=== PATIENT | male | born 1965 | race Caucasian/White ===

== ENCOUNTER 2016-08-29 14:10 | Emergency (ER) | payer MEDICAID ==
[~2016-08-29] VITALS: Wt 78.0 kg
[2016-08-29] MEDS ORDERED: ONDANSETRON 4 MG INJ IV STA (15:06)
[2016-08-29] MEDS ORDERED: SOD CHLORIDE 0.9% 1,000 ML IV ONE (15:30)
[2016-08-29] MEDS ORDERED: MECLIZINE 12.5 MG TAB PO ONE (15:30)
[2016-08-29 15:47] LABS: ADD UMIC NO; URINE BILIRUBIN (Dip) NEGATIVE (NEGATIVE); URINE BLOOD (Dip) NEGATIVE (NEGATIVE); URINE COLOR YELLOW (YELLOW); URINE GLUCOSE (Dip) NEGATIVE (NEGATIVE); URINE KETONES (Dip) 15 (NEGATIVE); URINE LEUKOCYTE ESTERASE (Dip) NEGATIVE (NEGATIVE); URINE NITRITE (Dip) NEGATIVE (NEGATIVE); URINE TOTAL PROTEIN (Dip) NEGATIVE (NEGATIVE); URINE UROBILINOGEN (Dip) 1.0 E.U./dL (0.1-1.0)
[2016-08-29 16:02] LABS: ADD SCAN DIFF NO
[2016-08-29 16:04] LABS: BASOPHILS % 0.3 % (0.0-2.0); EOSINOPHILS # 0.1 10^3/ul (0.0-0.5); EOSINOPHILS % 0.6 % (0.0-7.0); HEMATOCRIT 45.7 % (42.0-52.0); HEMOGLOBIN 15.1 g/dl (14.0-18.0); LYMPHOCYTES # 1.7 10^3/ul (0.8-2.9); LYMPHOCYTES % 18.2 % (15.0-51.0); MEAN CORPUSCULAR HEMOGLOBIN 29.6 pg (29.0-33.0); MEAN CORPUSCULAR VOLUME 89.6 fl (82.0-101.0); MEAN PLATELET VOLUME 11.4 fl (7.4-10.4); MONOCYTE # 0.5 10^3/ul (0.3-0.9); MONOCYTES % 5.5 % (0.0-11.0); NEUTROPHIL # 6.8 10^3/ul (1.6-7.5); NEUTROPHILS % 75.2 % (39.0-77.0); PLATELET COUNT 195 10^3/UL (140-415); RED CELL DISTRIBUTION WIDTH 12.4 % (11.5-14.5); WHITE BLOOD COUNT 9.1 10^3/ul (4.8-10.8)
[2016-08-29 16:23] LABS: ALANINE AMINOTRANSFERASE 41 IU/L (13-69); ALBUMIN 4.6 g/dl (3.3-4.9); ALBUMIN/GLOBULIN RATIO 1.31; ALKALINE PHOSPHATASE 72 IU/L (42-121); ANION GAP 11 (8-16); ASPARTATE AMINO TRANSFERASE 23 IU/L (15-46); BILIRUBIN,INDIRECT 0.8 mg/dl (0-1.1); BILIRUBIN,TOTAL 0.8 mg/dl (0.2-1.3); BLOOD UREA NITROGEN 19 mg/dl (7-20); CALCIUM 9.6 mg/dl (8.4-10.2); CARBON DIOXIDE 29 mmol/L (21-31); CHLORIDE 103 mmol/L (97-110); CREATININE 0.93 mg/dl (0.61-1.24); GLUCOSE 96 mg/dl (70-220); POTASSIUM 3.8 mmol/L (3.5-5.1); SODIUM 139 mmol/L (135-144); TOTAL PROTEIN 8.1 g/dl (6.1-8.1)
[2016-08-29 16:36] LABS: TROPONIN-I < 0.012 ng/ml (0.00-0.12)
--- NOTE | 2016-08-29 17:02 | RADRPT ---
PROCEDURE: CT Brain without contrast. CLINICAL INDICATION: headache, dizziness TECHNIQUE: CT scan of the brain was performed on a multidetector high-resolution CT scan. Axial im aging was obtained of the brain without contrast administration. Coronal and sagittal reformatted i mages were obtained from the axial source images. Standard CT scan of the head without contrast prot ocols were performed. The total exam CTDI equals 43.58 mGy and the total exam DLP equals 720.23 mGy-cm. One or more of the following dose reduction techniques were used: - Automated exposure control. - Adjustment of the mA and/or kV according to patient size. Use of iterative reconstruction technique. COMPARISON: None. FINDINGS: The ventricular system is normal in size without midline shift. There is some ventricle prominence of the bifrontal extra-axial CSF spaces consistent with mild frontal frontal cerebral volume loss. Negative for intracranial masses hemorrhages or midline shift. Ugalde-white matter junction is unrema rkable. The bones and calvarium are intact. The paranasal sinuses visualized and mastoids are unre markable. IMPRESSION: No evidence of intracranial masses hemorrhages or midline shift. RPTAT:AAJJ Physician Katty Date Time Electronically viewed and signed by Physician Katty on 08/29/2016 17:02 /
[2016-08-29] MEDS ORDERED: MECL12.574 PO (17:50)
[2016-08-29 18:10] VITALS: BP 119/75; PULSE 57; RESP 16; TEMP 98.2
--- NOTE | 2016-08-29 18:13 | ERD ---
ER Documentation Chief Complaint Date/Time DATE: 08/29/16 TIME: 18:06 Chief Complaint VOMITING, DIZZINESS, ONSET 2 DAYS HPI Patient is a 51-year-old male who presents to the emergency department with dizziness and vomiting 2 days. Patient states that his dizziness is constant, however worse with movement including when getting up from bed as well as moving his head. Patient states that "he cannot control his eyes" and states that he feels like the room is spinning. Patient does report one episode of bloody nonbilious vomiting today. Patient denies any fevers, chills, neck pain , neck stiffness, chest pain, shortness of breath, diplopia, dysphasia. Patient does report a headache. Patient states that the pain is localized to the occipital region. Patient states that the pain comes and goes. Patient denies any blurry vision, photophobia, phonophobia. Patient has not taken any medications for symptoms. Patient is able to ambulate without any difficulty. Patient is speaking in full sentences. Patient has no facial asymmetry, weakness of his limbs slurred speech. ROS All systems reviewed and are negative except as per history of present illness. Medications Home Meds Active Scripts Meclizine Hcl* (Antivert*) 12.5 Mg Tab, 12.5 MG PO Q6H Y for DIZZINESS, #20 TAB Prov:ALBERT CHEN PA-C 08/29/16 Allergies Allergies: Coded Allergies: No Known Allergy (Unverified , 08/29/16) PMhx/Soc History of Surgery: Yes (PT with L forearm surgery.) Anesthesia Reaction: No Hx Neurological Disorder: No Hx Respiratory Disorders: No Hx Cardiac Disorders: No Hx Psychiatric Problems: No Hx Miscellaneous Medical Probl: No Hx Alcohol Use: No Hx Substance Use: No Hx Tobacco Use: No Smoking Status: Never smoker FmHx Family History: No diabetes Physical Exam Vitals Vital Signs Date Time Temp Pulse Resp B/P Pulse Ox O2 Delivery O2 Flow Rate FiO2 08/29/16 18:10 98.2 57 16 119/75 98 Room Air 08/29/16 14:12 97.0 68 18 114/71 100 Physical Exam GENERAL: Well-developed, well-nourished male. Appears in no acute distress. Speaking in full sentences. HEAD: Normocephalic, atraumatic. No deformities or ecchymosis. EYE: Pupils equal, round, and reactive to light. EOMs intact. No conjunctival erythema. No eye discharge. No nystagmus noted. ENT: External ear without any masses or tenderness. Auditory canals clear bilaterally. TM visualized bilaterally, non-erythematous, non-bulging. Nasal mucosa pink with no discharge. Oropharynx is pink without any tonsillar erythema or exudates. No uvula deviation. No kissing tonsils. Tender palpation of bilateral mastoid processes. No foreign bodies in bilateral auditory canals noted. NECK: Supple. No meningismus. Normal ROM of the neck. LUNG: Clear to auscultation bilaterally. No rhonchi, wheezing, rales or coarse breath sounds. HEART: Regular rate and rhythm. No murmurs, rubs or gallops. BACK: No midline tenderness. EXTREMITES: Equal pulses bilaterally. No peripheral clubbing, cyanosis or edema. No unilateral leg swelling. NEUROLOGIC: Alert and oriented x3, cooperative. Mood and affect appropriate to situation. Cranial nerves II through XII are grossly intact. Normal speech. Motor exam: 5/5 strength in upper and lower extremities. Sensory exam: Sensation intact to light touch on all four extremities. Cerebellar function exam:. No dysmetria on [id number] test. No pronator drift. SKIN: Normal color. Warm and dry. No rashes or lesions. Result Diagram: 08/29/16 1544 08/29/16 1544 Results 24 hrs Laboratory Tests Test 08/29/16 15:34 08/29/16 15:44 Urine Color YELLOW Urine Clarity CLEAR Urine pH 6.5 Urine Specific [place] 1.020 Urine Ketones 15 Urine Nitrite NEGATIVE Urine Bilirubin NEGATIVE Urine Urobilinogen 1.0 E.U./dL Urine Leukocyte Esterase NEGATIVE Urine Hemoglobin NEGATIVE Urine Glucose NEGATIVE% Urine Total Protein NEGATIVE White Blood Count 9.110^3/ul Red Blood Count 5.1010^6/ul Hemoglobin 15.1g/dl Hematocrit 45.7% Mean Corpuscular Volume 89.6fl Mean Corpuscular Hemoglobin 29.6pg Mean Corpuscular Hemoglobin Concent 33.0g/dl Red Cell Distribution Width 12.4% Platelet Count 71680^3/UL Mean Platelet Volume 11.4fl Neutrophils % 75.2% Lymphocytes % 18.2% Monocytes % 5.5% Eosinophils % 0.6% Basophils % 0.3% Nucleated Red Blood Cells % 0.0/100WBC Neutrophils # 6.810^3/ul Lymphocytes # 1.710^3/ul Monocytes # 0.510^3/ul Eosinophils # 0.110^3/ul Basophils # 0.010^3/ul Nucleated Red Blood Cells # 0.010^3/ul Sodium Level 139mmol/L Potassium Level 3.8mmol/L Chloride Level 103mmol/L Carbon Dioxide Level 29mmol/L Anion Gap 11 Blood Urea Nitrogen 19mg/dl Creatinine 0.93mg/dl Glucose Level 96mg/dl Calcium Level 9.6mg/dl Total Bilirubin 0.8mg/dl Direct Bilirubin 0.00mg/dl Indirect Bilirubin 0.8mg/dl Aspartate Amino Transf (AST/SGOT) 23IU/L Alanine Aminotransferase (ALT/SGPT) 41IU/L Alkaline Phosphatase 72IU/L Troponin I < 0.012ng/ml Total Protein 8.1g/dl Albumin 4.6g/dl Globulin 3.50g/dl Albumin/Globulin Ratio 1.31 Current Medications Medications (Trade) Dose Ordered Sig/Lisy Route PRN Reason Start Time Stop Time Status Last Admin Dose Admin Sodium Chloride (NS) 1,000 ml @ 1,000 mls/hr Q1H ONCE IV 08/29/16 15:30 08/29/16 16:29 DC 08/29/16 15:46 Ondansetron HCl (Zofran Inj) 4 mg ONCE STAT IV 08/29/16 15:06 08/29/16 15:10 DC 08/29/16 15:46 Meclizine HCl (Antivert) 12.5 mg ONCE ONCE PO 08/29/16 15:30 08/29/16 15:31 DC 08/29/16 15:46 Procedures/MDM ED COURSE: The patient was stable throughout ED course. I kept the patient and/or family informed of laboratory and diagnostic imaging results throughout the ED course. EKG: Read by Dr. Phillips, attending physician. EKG showed sinus bradycardia at a rate of 45 bpm. No arrhythmias, acute ST elevations or T wave changes were noted. DIAGNOSTIC IMAGING: Read by radiologist. DIAGNOSTIC IMAGING REPORT Patient: ALEX NORMAN : 1965 Age: 51 Sex: M MR #: [id number] DOS: 08/29/16 1506 Ordering MD: ALBERT CHEN PA-C Location: [facility] Room/Bed: PROCEDURE: CT Brain without contrast. CLINICAL INDICATION: headache, dizziness TECHNIQUE: CT scan of the brain was performed on a multidetector high- resolution CT scan. Axial imaging was obtained of the brain without contrast administration. Coronal and sagittal reformatted images were obtained from the axial source images. Standard CT scan of the head without contrast protocols were performed. The total exam CTDI equals 43.58 mGy and the total exam DLP equals 720.23 mGy- cm. One or more of the following dose reduction techniques were used: - Automated exposure control. - Adjustment of the mA and/or kV according to patient size. Use of iterative reconstruction technique. COMPARISON: None. FINDINGS: The ventricular system is normal in size without midline shift. There is some ventricle prominence of the bifrontal extra-axial CSF spaces consistent with mild frontal frontal cerebral volume loss. Negative for intracranial masses hemorrhages or midline shift. Ugalde-white matter junction is unremarkable. The bones and calvarium are intact. The paranasal sinuses visualized and mastoids are unremarkable. IMPRESSION: No evidence of intracranial masses hemorrhages or midline shift. RPTAT:AAJJ Physician Katty Date Time Electronically viewed and signed by Physician Katty on 08/29/2016 17:02 BM/ CC: ALBERT CHEN PA-C MEDICATIONS GIVEN: IV fluids, Zofran, meclizine Patient tolerated medication well with no adverse reactions. Patient reported improvement in symptoms. MEDICAL DECISION MAKING: This is a 51-year-old male who presents with dizziness and vomiting 2 days. Vital signs were reviewed. Patient was afebrile. Patient was not hypoxic. Patient stated that the dizziness is worse with moving his head and positional changes. The patient denied any recent URIs. Full neuro exam was normal. CT brain was unremarkable. EKG showed sinus bradycardia. Trop was negative. CBC showed no evidence of systemic infection or severe anemia. CMP showed no evidence of electrolyte abnormalities, severe acidosis, alkalosis, renal failure , or liver disease. UA showed no evidence of acute infection or hematuria. Given these findings, the patient's presentation is most consistent with benign paroxysmal positional vertigo. I have a much lower clinical concern for CVA, intracranial hemorrhage, cerebral infarct, intracranial mass, multiple sclerosis , labyrinthitis, vestibular neuritis, Meniere's disease, ear foreign body or acute otitis media. Low suspicion for ACS, pericarditis, arrhythmia. PRESCRIPTIONS: Meclizine DISCHARGE: At this time, patient is stable for discharge and outpatient management. Patient provided with a copy of all imaging and blood work obtained today. I have instructed the patient to follow-up with his/her primary care physician in 1-2 days. If symptoms persist, patient may need to see a specialist for further examinations and testing. I have instructed the patient to promptly return to the ER at any time for any new or worsening symptoms including increased increased pain, fever, nausea, vomiting, numbness, weakness, slurred speech, LOC. The patient and/or family expressed understanding of and agreement with this plan. All questions were answered. Home care instructions were provided. Departure Diagnosis: Primary Impression: BPPV (benign paroxysmal positional vertigo) Laterality: unspecified laterality Qualified Code: H81.10 - BPPV (benign paroxysmal positional vertigo), unspecified laterality Condition: Stable Patient Instructions: Benign Positional Vertigo Referrals: PADMA GARCIA M.D., MICHAEL D MD NAMAZIE, ALI R MD PLEET, LAWRENCE Additional Instructions: Call your primary care doctor TOMORROW for an appointment during the next 1-2 days.See the doctor sooner or return here if your condition worsens before your appointment time. ALBERT CHEN PA-C August 29, 2016 18:13
== END 2016-08-29 18:11 | disposition home or self-care (01) ==
LOC: FTE 14:10
DX: H81.10 Benign paroxysmal vertigo, unspecified ear (principal); R51 Headache; R00.1 Bradycardia, unspecified
CPT/HCPCS: 70450; 80053; 81003; 84484; 85025; J2405; J7030; Z7610; 93005; 96374